=== PATIENT | female | born 1940 | race Caucasian/White ===

== ENCOUNTER → 2016-05-24 | Outpatient (CLI) | payer MEDICARE | END | disposition home or self-care (01) | LOC: CFH 15:12 | PROVIDERS: ATTEND Nurse Practitioner | DX: J44.9 Chronic obstructive pulmonary disease, unspecified (principal); J98.11 Atelectasis; J90 Pleural effusion, not elsewhere classified; R91.8 Other nonspecific abnormal finding of lung field; R05 Cough; D71 Functional disorders of polymorphonuclear neutrophils | CPT/HCPCS: 71250 ==

== ENCOUNTER → 2016-10-28 | Outpatient (CLI) | payer MEDICARE | END | disposition home or self-care (01) | LOC: CFH 10:52 | PROVIDERS: ATTEND Family Medicine | DX: D44.7 Neoplasm of uncertain behavior of aortic body and other paraganglia (principal) | CPT/HCPCS: 70490 ==

== ENCOUNTER → 2017-02-15 | Outpatient (CLI) | payer MEDICARE | LOC: CFH 12:32 | PROVIDERS: ATTEND Family Medicine | DX: D44.7 Neoplasm of uncertain behavior of aortic body and other paraganglia (principal) | CPT/HCPCS: 70540 ==

== ENCOUNTER → 2017-04-15 | Outpatient (CLI) | payer MEDICARE | END | disposition home or self-care (01) | LOC: CFH 09:02 | PROVIDERS: ATTEND Family Medicine | DX: J43.2 Centrilobular emphysema (principal); J90 Pleural effusion, not elsewhere classified; J98.11 Atelectasis; J84.10 Pulmonary fibrosis, unspecified; K86.9 Disease of pancreas, unspecified; K76.89 Other specified diseases of liver; M51.36 Other intervertebral disc degeneration, lumbar region | CPT/HCPCS: 71250; 74176 ==

== ENCOUNTER → 2019-04-20 | Outpatient (CLI) | payer MEDICARE ==
[~2019-04-20] MED LIST: ALBU2TAB PO; AMLO-150 GT; AMLO2.5T5 PO; AMOX1TAB64 PO; ASPI-515 PO; ATOR40TA GT; CALC-112 GT; CALC0.254 GT; CARV3.1212 PO; CHOL4PAC3 GT; CHOL4POW3 PO; DOXA2TAB GT; ESCI10TA GT; FAMO-79 GT; FEBU40TA GT; FLUT1BLS3 IH; FURO-93 GT; FURO40TA6 PO; HYDR-3343 GT; HYDR20VI3 PO; IPRA4AER INH; IRON1TAB60 GT; ISOS20TA58 PO; LEVO75TA5 PO/NG; LIPA1CAP2 GT; LISI40TA GT; MAGN400T36 GT; MONT10TA11 GT; NEBI5TAB3 GT; OMEP-110 PO; SODI1TAB GT
== END | disposition home or self-care (01) ==
LOC: CFH 10:07
DX: Z13.820 Encounter for screening for osteoporosis (principal); M85.88 Other specified disorders of bone density and structure, other site; N95.9 Unspecified menopausal and perimenopausal disorder
CPT/HCPCS: 77080